=== PATIENT | female | born 1980 | race Caucasian/White ===

== ENCOUNTER 2018-07-01 05:39 | Day surgery (SDC) | payer BC, OTHER ==
[~2018-07-01] VITALS: Ht 160 cm; Wt 77.1 kg
[~2018-07-01 05:39] MED LIST: FLONASE 0.05%50 MCG NASAL; LIALDA1.2 GM PO; OMEPRAZOLE 20 M20 M1 PO; PARAGARD T 3801 EACH INTRAUTERI; REMICADE 1100 MG/VIA; SINGULAIR 10 MG10 M1 PO
[2018-07-01 09:30] VITALS: BP 127/84
[2018-07-01] MEDS ORDERED: IBUPROFEN 800800 M1 PO (11:36)
[2018-07-01 11:44] VITALS: BP 127/84
--- NOTE | 2018-07-08 11:06 | PATH ---
[facility] [address] [address] PATHOLOGY RPT PROCEDURE Name: LASHONDA WHIPPLE Room #: DEP [facility] M..#: [id number] Admission: 07/01/18 Date of : 78 Discharge: 07/01/18 Report #: [id number] Path Case #: [id number] [facility] Accession Number: [id number] . 01 Material submitted: . PART A: POSTERIOR TRANSFORMATIONAL ZONE PART B: CENTRAL TRANSFORMATIONAL ZONE PART C: ANTERIOR TRANSFORMATIONAL ZONE PART D: ENDOCERVICAL CURETTINGS . 01 Clinical history: . LUIS 2, cervical dysplasia . 02 Diagnosis: A. Cervix LEEP "posterior transformation zone": - Focal area consistent with cervical intraepithelial neoplasia Grade 2 arising in the background of cervical intraepithelial neoplasia Grade 1. The surgical resection margins reveal cauterization artifact without any dysplasia - Immunoperoxidase stain for p16 on block A1 is positive, margins are free. . B. Cervix LEEP "central transformation zone": - Consistent with cervical intraepithelial neoplasia Grade 1. The surgical resection margins reveal cauterization artifact without any definite evidence of dysplasia or malignancy. - Immunoperoxidase stain for p16 on block B1 is negative. . C. Cervix "anterior transformation zone" LEEP: - Focal area consistent with cervical intraepithelial neoplasia Grade 1, mild dysplasia. The surgical resection margins reveal cauterization artifact without any definite evidence of dysplasia or malignancy. . D. Endometrium and endocervical glands "endocervical curettings": - Predominantly endometrium revealing proliferative phase without hyperplasia or malignancy. - Few fragments of endocervical glands reveal reactive changes without dysplasia or malignancy. (SHA:sterling; 07/03/2018) QMS/07/06/2018 . 02 Electronically signed: . Lenny Sanchez MD, Pathologist NPI- [id number] . 01 Gross description: . A. The specimen is received in formalin, labeled "Lashonda Whipple, [place] [address] PATHOLOGY RPT PROCEDURE Name: LASHONDA WHIPPLE Room #: DEP [facility]#: [id number] Admission: 07/01/18 Date of : 78 Discharge: 07/01/18 Report #: [id number] Path Case #: [id number] transformational zone". Received is a partial unoriented LEEP specimen measuring 2.7 x 1.9 x 1.0 cm in greatest dimension. The ectocervical mucosa is mendoza-brown, granular to whitmore-mendoza, smooth in appearance. The surgical margin is inked. The specimen is serially sectioned and entirely submitted in cassettes A1 through A4. . B. The specimen is received in formalin, labeled "Lashonda Whipple, central transformational zone". Received is a partial unoriented LEEP specimen measuring 2.8 x 1.5 x 0.8 cm in greatest dimensions. The ectocervical mucosa is light brown and granular in appearance. The surgical margin is inked. The specimen is serially sectioned and entirely submitted in cassettes B1 through B4. . C. The specimen is received in formalin, labeled "Lashonda Whipple, anterior transformational zone". Received is a partial unoriented LEEP specimen measuring 2.7 x 1.9 x 1.1 cm in greatest dimensions. The ectocervical mucosa is whitmore-mendoza and smooth to granular in appearance. The surgical margin is inked. The specimen is serially sectioned and entirely submitted in cassettes C1 through C4. . D. The specimen is received in formalin, labeled "Lashonda Whipple, endocervical curettings". Received is blood-tinged mucoid material admixed with minute fragments of pale mendoza soft tissue measuring 1.0 x 0.7 x 0.1 cm in aggregate dimensions. The specimen is filtered and entirely submitted in cassette D1. (CAA; 07/02/2018) QAC/QAC . 02 Pathologist provided ICD-10: N87.1, N87.0 . 02 CPT . 427089, 799374, 324427, 054052, O21001 Specimen Comment: A courtesy copy of this report has been sent to Specimen Comment: [phone], . Specimen Comment: Report sent to / DR OGDEN Specimen Comment: A duplicate report has been generated due to demographic updates. Performed at: [address], [place], [place] [id number] MD Jeremy Fung MD Phone: [phone] Performed at: [address] [id number] MD Kimberley Cagle MD Phone: [phone]
--- NOTE | 2018-07-15 16:45 | O ---
[facility] [place] [address] [address] [place] [address] OPERATIVE REPORT Name: JASMYN MAXWELL Room #: DEP [facility]..#: [id number] Admission: 07/01/18 Attend Phys: Shaun Tapia MD Discharge: 07/01/18 Date of : 78 Report #: [id number] THIS REPORT FOR: //name// CC: DENIA OGDEN Physician staff Shaun Tapia DATE OF SERVICE: 07/01/2018 PREOPERATIVE DIAGNOSIS: Cervical intraepithelial neoplasia 2. POSTOPERATIVE DIAGNOSIS: Cervical intraepithelial neoplasia 2. PROCEDURE: Loop electrosurgical excision procedure of the cervix and removal of ParaGard IUD. SURGEON: Esa Tapia MD WIRE SPIRAL BINDER: None. ANESTHESIA: General. ESTIMATED BLOOD LOSS: 15 mL. SPECIMENS: 1. Posterior transformation zone. 2. Central transformation zone. 3. Anterior transformation zone. 4. Endocervical curettings. COMPLICATIONS: None. COMMENTS: The start of surgery was delayed by equipment issues. DESCRIPTION OF PROCEDURE: The patient was seen in the preoperative holding area where consent was obtained for surgery and followup was reviewed with the patient and arranged to be seen next week. She was then taken to the operating room and administered general anesthesia and then draped in a sterile fashion in the dorsal lithotomy position. Due to equipment issues, the start of the case was delayed. Once equipment was set, a laser speculum was placed in the vagina. The cervix was visualized and painted with acetic acid. The borders of the transformation zone reached far out almost to the ectocervix. Lugol solution was also applied to help assess colposcopically and then the acetowhite areas were most prominent on the edges of the transformation zone and in the 5 o'clock position. The border was outlined using the loop electrode, which was set at 50 cristobal of power cutting and cautery. The periphery was then injected using 10 mL [facility] [address] [place] [address] OPERATIVE REPORT Name: JASMYN MAXWELL Room #: DEP [facility]#: [id number] Admission: 07/01/18 Attend Phys: Shaun Tapia MD Discharge: 07/01/18 Date of : 78 Report #: [id number] of 1% lidocaine with epinephrine for hemostasis. Pressure was then applied to the cervix to get hemostasis from the injection sites. A 20 mm wide loop electrode was set at 8 mm depth and was used to excise the posterior portion of the transformation zone. Using the cutting wave, the central transformation zone was then excised followed by excision of the anterior transformation zone. The depth of the excision was 8 mm. Endocervical curettings were obtained using a Kevorkian curette and sent for pathology. Hemostasis was achieved using the LEEP ball electrode at 50 cristobal power cautery setting. Monsel solution was also applied for several minutes. Hemostasis was observed. All instruments were then removed. Counts were correct. The patient was brought out of general anesthesia and taken to recovery room with IV infusing well. She did receive Ancef 2 grams for antibiotic prophylaxis. She was to be at pelvic rest for the next [address] Tapia 8 days following surgery, she was to call and should she have any fever, increasing pain or increasing bleeding or foul smelling discharge. <ELECTRONICALLY SIGNED> By: Shaun Tapia MD 07/15/18 1645 1322 1343 Shaun Tapia MD /nt
== END 2018-07-01 12:30 | disposition home or self-care (01) ==
LOC: TBA 05:39 → OR 05:39
DX: N87.1 Moderate cervical dysplasia (principal); N87.0 Mild cervical dysplasia; K21.9 Gastro-esophageal reflux disease without esophagitis; Z98.890 Other specified postprocedural states; Z87.19 Personal history of other diseases of the digestive system; Z79.899 Other long term (current) drug therapy
CPT/HCPCS: 50010; 50101; 50123; 51732; 52127; 62110; 62900; 70005